=== PATIENT | male | born 1990 | race Caucasian/White ===

== ENCOUNTER 2016-11-28 17:56 | Emergency (ER) | payer OTHER | END 2016-11-29 00:20 | disposition home or self-care (01) | LOC: ER1 17:56 | DX: A64 Unspecified sexually transmitted disease (principal); B00.9 Herpesviral infection, unspecified | CPT/HCPCS: 76870; 80307; 81001; 87086; 96372; 99284; J0696; Q0162 ==

== ENCOUNTER 2020-12-27 09:39 | Emergency (ER) | payer OTHER ==
[2020-12-27 10:50] LABS: HEMOGLOBIN 13.5 gm/dl (14.0-17.5); RED BLOOD COUNT 4.72 M/UL (4.20-5.50); WHITE BLOOD COUNT 5.9 K/UL (4.5-11.0)
[2020-12-27 11:16] LABS: BUN/CREATININE RATIO 14 (0-10)
== END 2020-12-27 13:09 | disposition home or self-care (01) ==
LOC: ER1 09:39
PROVIDERS: Emergency Medicine
DX: T50.901A Poisoning by unspecified drugs, medicaments and biological substances, accidental (unintentional), initial encounter (principal); F17.200 Nicotine dependence, unspecified, uncomplicated
CPT/HCPCS: 80053; 85025; 99284

== ENCOUNTER 2021-06-12 20:29 | Emergency (ER) | payer OTHER ==
[2021-06-12 21:20] LABS: HEMOGLOBIN 13.6 gm/dl (14.0-17.5); RED BLOOD COUNT 4.6 M/UL (4.20-5.50); WHITE BLOOD COUNT 10.5 K/UL (4.5-11.0)
[2021-06-12 21:44] LABS: BUN/CREATININE RATIO 15 (0-10)
[2021-06-12] MEDS ORDERED: CLEOCIN HCL300 MG PO (22:27)
[2021-06-12] MEDS ORDERED: HYDROCODON-ACE1 EAC4 PO (22:33)
== END 2021-06-12 22:35 | disposition home or self-care (01) ==
LOC: ER1 20:29
PROVIDERS: Physician Assistant
DX: L03.115 Cellulitis of right lower limb (principal); F17.200 Nicotine dependence, unspecified, uncomplicated
CPT/HCPCS: 72193; 80053; 83605; 85025; 87040; 96374; 96375; 99284; J2270; J2405; Q9967